=== PATIENT | male | born 1995 | race Caucasian/White ===

== ENCOUNTER 2017-02-04 14:25 | Emergency (ER) | payer SELFPAY ==
[2017-02-04] MEDS ORDERED: XYLOCAINE 1% MPF 5 mL INFILTRATI ONE (19:28)
[2017-02-04] MEDS ORDERED: KEFLEX PO ONE (19:28)
[2017-02-04] MEDS ORDERED: BOOSTRIX IM ONE (19:28)
--- NOTE | 2017-02-04 19:32 | Emergency Department Report ---
ED Laceration HPI - HPI Chief Complaint: Wound/Laceration Stated Complaint: RT FINGER CUT Time Seen by Provider: 02/04/17 19:19 Occurred When: Today Location: Upper Extremity Severity: mild Tetanus Status: Unknown Laceration Symptoms: No Foreign Body Sensation, No Numbness, No Weakness, No Pain Other History: He has a [id number] male presents to ED with laceration to his right third finger. Patient states he was at work today using a cutting machine when his finger accidentally got caught into the machine. Patient states minimal bleeding after incident. Patient denies numbness, loss of sensation of finger, foreign object, headache, blurred vision, any other problems. ED Review of Systems ROS: Stated complaint: RT FINGER CUT Other details as noted in HPI Constitutional: denies: chills, fever Eyes: denies: eye pain, eye discharge, vision change ENT: denies: ear pain, throat pain, dental pain, hearing loss, congestion Respiratory: denies: cough, shortness of breath, wheezing Cardiovascular: denies: chest pain, palpitations Endocrine: no symptoms reported Gastrointestinal: denies: abdominal pain, nausea, vomiting, diarrhea, melena, hematochezia Genitourinary: denies: urgency, dysuria Musculoskeletal: denies: back pain, joint swelling, arthralgia Skin: denies: rash, lesions Neurological: denies: headache, weakness, numbness, paresthesias, confusion Psychiatric: denies: anxiety, depression Hematological/Lymphatic: denies: easy bleeding, easy bruising ED Past Medical Hx - Past Medical History Previous Medical History?: No - Surgical History Past Surgical History?: No - Social History Smoking Status: Never Smoker Substance Use Type: None - Medications Home Medications: Home Medications Medication Instructions Recorded Confirmed Last Taken Type Cephalexin [Keflex] 500 mg PO BID #12 capsule 02/04/17 Unknown Rx Ibuprofen [Motrin 800 MG tab] 800 mg PO Q8HR PRN #30 tablet 02/04/17 Unknown Rx Neomycn/Baci Zn/Pmyx Bs/Pramox 1 applic TP TID #1 tube 02/04/17 Unknown Rx [Neosporin + Pain Relief Oint] Laceration Physical Exam - Exam General: Vital signs noted. No distress. Alert and acting appropriately. Laceration Location: Upper Extremity Laceration Exam: Yes Normal Distal CMS, No Foreign Body, No Exposed Tendon, Vessel, or Nerve, No Tendon Injury ED Course Vital Signs 02/04/17 14:31 Temperature 97.8 F Pulse Rate 55 L Respiratory 16 Rate Blood Pressure 149/97 O2 Sat by Pulse 100 Oximetry - Laceration /Wound Repair Right Medial Distal Finger Wound Location: upper extremity (right third digit) Wound Length (cm): 2 Wound's Depth, Shape: superficial, linear Wound Explored: clean Irrigated w/ Saline (ccs): 400 Betadine Prep?: Yes Anesthesia: 1% Lidocaine Volume Anesthetic (ccs): 2 Wound Repaired With: sutures Suture Size/Type: 4:0, proline Number of Sutures: 5 Layer Closure?: No ED Medical Decision Making - Medical Decision Making Anterior presents with right finger laceration ED course: Patient received tetanus booster, cephalexin 500 mg. The 2cm laceration wound was prepped and draped in sterile fashion. Anesthesia was achieved with 2mL of 1% lidocaine. The wound was irrigated with 400cc NS and explored. There were no foreign bodies The wound was reapproximated in 1 layer with 5 sutures suing with three 4-0 monofilament sutures in the dermis with interrupted sutures percutaneously. There was excellent reapproximation of the wound edges. The patient tolerated the procedure without complication. Discussed the patient to return in 7-10 days for suture removal. Discussed to take antibiotic as prescribed and pain medication as prescribed. Discussed changing dressing daily. Discussed to keep initial dressing on for 72 hours and keep wound dry. Critical care attestation.: If time is entered above; I have spent that time in minutes in the direct care of this critically ill patient, excluding procedure time. ED Disposition Clinical Impression: Laceration of finger of right hand Disposition: DISCHARGED TO HOME OR SELFCARE Is pt being admited?: No Does the pt Need Aspirin: No Condition: Stable Instructions: Skin Adhesive Care (ED), Finger Laceration (ED), Acute Wound Care (ED), Suture Care (ED) Prescriptions: Cephalexin [Keflex] 500 mg PO BID #12 capsule Ibuprofen [Motrin 800 MG tab] 800 mg PO Q8HR PRN #30 tablet PRN Reason: Pain Neomycn/Baci Zn/Pmyx Bs/Pramox [Neosporin + Pain Relief Oint] 1 applic TP TID # 1 tube Referrals: PRIMARY CARE, [Primary Care Provider] - 3-5 Days [facility] [Outside] - 3-5 [address] [facility] [Outside] - 3-5 Days Forms: Work/School Release Form(ED), Accompanied Note Time of Disposition: 20:22
[2017-02-04] MEDS ORDERED: NACL 0.9% 500 ML IRRIGATION ONE (19:41)
[2017-02-04] MEDS ORDERED: NACL 0.9% 500 ML IR ONE (19:47)
[2017-02-04] MEDS ORDERED: TRIPLE ANTIBIOTIC TP ONE (20:17)
[2017-02-04 20:57] VITALS: BP 161/83
== END 2017-02-04 20:53 | disposition home or self-care (01) ==
LOC: ED 14:25
DX: S61.212A Laceration without foreign body of right middle finger without damage to nail, initial encounter (principal); W31.89XA Contact with other specified machinery, initial encounter; Y93.89 Activity, other specified; Y99.8 Other external cause status; Y92.89 Other specified places as the place of occurrence of the external cause
CPT/HCPCS: 90471; 90715; A6250

== ENCOUNTER 2017-02-13 12:53 | Emergency (ER) | payer SELFPAY ==
[2017-02-13 13:00] VITALS: BP 133/82
--- NOTE | 2017-02-13 14:49 | Emergency Department Report ---
Suture/Staple Removal - [facility] Chief Complaint: Laceration/Recheck/Suture Stated Complaint: SUTURE REMOVAL Time Seen by Provider: 02/13/17 14:42 When Sutures or Merlene Placed: 02/04/2017 Wound Location: right third posterior finger ED Review of Systems ROS: Stated complaint: SUTURE REMOVAL Other details as noted in HPI Constitutional: denies: chills, fever Eyes: denies: eye pain, eye discharge, vision change ENT: denies: ear pain, throat pain Respiratory: denies: cough, shortness of breath, wheezing Cardiovascular: denies: chest pain, palpitations Endocrine: no symptoms reported Gastrointestinal: denies: abdominal pain, nausea, diarrhea Genitourinary: denies: urgency, dysuria Musculoskeletal: denies: back pain, joint swelling, arthralgia Skin: denies: rash, lesions Neurological: denies: headache, weakness, paresthesias Psychiatric: denies: anxiety, depression Hematological/Lymphatic: denies: easy bleeding, easy bruising ED Past Medical Hx - Past Medical History Previous Medical History?: No - Surgical History Past Surgical History?: No - Social History Smoking Status: Never Smoker Substance Use Type: None - Medications Home Medications: Home Medications Medication Instructions Recorded Confirmed Last Taken Type Cephalexin [Keflex] 500 mg PO BID #12 capsule 02/04/17 Unknown Rx Ibuprofen [Motrin 800 MG tab] 800 mg PO Q8HR PRN #30 tablet 02/04/17 Unknown Rx Neomycn/Baci Zn/Pmyx Bs/Pramox 1 applic TP TID #1 tube 02/04/17 Unknown Rx [Neosporin + Pain Relief Oint] Suture Removal Exam - Exam General: Vital signs noted. No distress. Alert and acting appropriately. Wound: No Pathologic Erythema, No Tenderness, No Drainage, No Pus, No Wound Dehiscence Other Systems: All other systems reviewed and are unremarkable. Intact skin sutures noted to right distal third posterior finger. Good wound closure, nonerythematous, nontender. Patient initially still using finger splint. Right third finger DIP joint with limited range of motion. ED Course Vital Signs 02/13/17 12:58 Temperature 98.4 F Pulse Rate 56 L Respiratory 17 Rate Blood Pressure 133/82 O2 Sat by Pulse 99 Oximetry ED Recheck MDM - Differential Diagnosis Wound Recheck, Suture/Staple Removal - Medical Decision Making Patient is nontoxic and hemodynamically stable. All intermittent skin sutures removed from her right third posterior finger without any complications. Patient tolerated procedure very well. I've instructed patient to gradually increase use of finger while working on range of motion. Critical care attestation.: If time is entered above; I have spent that time in minutes in the direct care of this critically ill patient, excluding procedure time. ED Disposition Clinical Impression: Visit for suture removal Disposition: DISCHARGED TO HOME OR SELFCARE Is pt being admited?: No Does the pt Need Aspirin: No Condition: Good Instructions: Suture Removal (ED) Referrals: PRIMARY CARE, [Primary Care Provider] - 3-5 Days Time of Disposition: 14:52
== END 2017-02-13 15:06 | disposition home or self-care (01) ==
LOC: ED 12:53
DX: Z48.02 Encounter for removal of sutures (principal)

== ENCOUNTER 2019-06-15 08:17 | Emergency (ER) | payer OTHER ==
[2019-06-15 08:21] VITALS: BP 137/64
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
== END 2019-06-15 09:21 | disposition home or self-care (01) ==
LOC: ED 08:17
DX: S46.911A Strain of unspecified muscle, fascia and tendon at shoulder and upper arm level, right arm, initial encounter (principal); Z79.899 Other long term (current) drug therapy; X58.XXXA Exposure to other specified factors, initial encounter; Y93.89 Activity, other specified; Y92.89 Other specified places as the place of occurrence of the external cause; Y99.8 Other external cause status
CPT/HCPCS: 99282